=== PATIENT | male | born 1940 | race Two or more races ===

== ENCOUNTER 2021-04-26 15:37 | Emergency (ER) | payer OTHER ==
[2021-04-26 15:52] VITALS: BP 142/89; PULSE 96; TEMP 97.8; BMI 23.0
[2021-04-26 18:06] LABS: BASO % 0.6 % (0-2.0); EOS % 5.5 % (0-4.5); HEMATOCRIT 46.8 % (35.4-49); HEMOGLOBIN 16.1 GM/dL (11.7-16.9); LYMPH % 19.9 % (8-40); MCH 32.9 pg (25.7-33.7); MCHC 34.4 g/dl (32.0-35.9); MEAN CELL VOLUME 95.6 fl (80-96); MEAN PLT VOLUME 7.7 fl (7.5-11.1); PLATELET COUNT 238 10^3/uL (134-434); RBC 4.89 M/mm3 (4.00-5.60); RDW 13.2 % (11.9-15.9); WHITE BLOOD COUNT 6.4 K/mm3 (4.0-10.0)
[2021-04-26 18:32] LABS: ALBUMIN 4.3 g/dl (3.4-5.0); BLOOD UREA NITROGEN 11.6 mg/dL (7-18); CALCIUM 9.3 mg/dL (8.5-10.1)
[2021-04-26 18:35] LABS: CREATININE 1.4 mg/dL (0.55-1.3)
[2021-04-26 18:37] LABS: BILIRUBIN,TOTAL 0.5 mg/dL (0.2-1); TOT PROT 7.9 g/dl (6.4-8.2)
== END 2021-04-26 21:55 | disposition home or self-care (01) ==
LOC: JERFT 15:37
DX: I71.2 Thoracic aortic aneurysm, without rupture (principal); L04.2 Acute lymphadenitis of upper limb
CPT/HCPCS: 36415; 71250-TC; 80053; 85025; 99284-25

== ENCOUNTER 2021-07-30 04:26 | Day surgery (SDC) | payer OTHER ==
[2021-07-26 15:41] VITALS: BMI 21.6
[2021-07-30 13:37] VITALS: BP 162/86; PULSE 78; TEMP 97.6
== END 2021-07-30 14:03 | disposition home or self-care (01) ==
LOC: JRADIR 04:26
PROVIDERS: ATTEND Internal Medicine Hematology & Oncology
PROC: 07B63ZX Excision of Left Axillary Lymphatic, Percutaneous Approach, Diagnostic (ICD-10-PCS; principal; 2021-07-30)
DX: C85.14 Unspecified B-cell lymphoma, lymph nodes of axilla and upper limb (principal)
CPT/HCPCS: 38525; 76942-TC

== ENCOUNTER 2024-05-26 06:45 | Day surgery (SDC) | payer OTHER ==
[2024-05-25 08:32] VITALS: BMI 20.9
[~2024-05-26 06:45] MED LIST: ACETAMINOPHEN 325 MG TABLET (FP) PO PRN
[2024-05-26] MEDS ORDERED: LIDOCAINE HCL/PF 1% SDV 5ML VIAL ONE (07:25)
[2024-05-26] MEDS ORDERED: EPINEPHrine 1:1000 P/F - 1 MG/ML AMP ONE (07:25)
[2024-05-26] MEDS ORDERED: LIDOCAINE HCL/PF 2% SDV 5ML VIAL ONE (07:25)
[2024-05-26] MEDS ORDERED: BUPIVACAINE HCL/PF 0.75% 10 ML VIAL ONE (07:26)
[2024-05-26] MEDS ORDERED: OFLOXACIN 0.3% OPHTHALMIC SOLUTION 5 ML BOTTLE ONE (08:31)
[2024-05-26] MEDS ORDERED: KETOROLAC TROMETHAMINE 0.5% EYE DROP 1 DROP DROPS ONE (08:31)
[2024-05-26] MEDS ORDERED: TROPICAMIDE 1% OPHTH SOLN 15 ML BOTTLE ONE (08:31)
[2024-05-26] MEDS ORDERED: PHENYLEPHRINE 2.5% OPTHALMIC DROP 2ML BOTTLE ONE (08:31)
[2024-05-26] MEDS ORDERED: CYCLOPENTOLATE HCL 1% OPHTH SOLN 2 ML BOTTLE ONE (08:32)
[2024-05-26] MEDS: CYCLOPENTOLATE HCL 1% OPHTH SOLN 2 ML BOTTLE OP SCH (08:53)
[2024-05-26] MEDS: PHENYLEPHRINE 2.5% OPHTH SOLN 15 ML BOTTLE OP SCH (08:53)
[2024-05-26] MEDS: TROPICAMIDE 1% OPHTH SOLN 15 ML BOTTLE OP SCH (08:53)
[2024-05-26] MEDS: KETOROLAC TROMETHAMINE 0.5% EYE DROP 1 DROP DROPS OP SCH (08:53)
[2024-05-26] MEDS: OFLOXACIN 0.3% OPHTHALMIC SOLUTION 5 ML BOTTLE OP SCH (08:54)
[2024-05-26] MEDS ORDERED: MIDAZOLAM HCL 2 MG/2 ML SINGLE DOSE VIAL ONE (09:07)
[2024-05-26] MEDS ORDERED: PROPOFOL 20 ML ONE (09:59)
[2024-05-26] MEDS: LIDOCAINE HCL/PF 2% SDV 5ML VIAL INF ONE (10:13)
[2024-05-26] MEDS: BUPIVACAINE HCL/PF 0.75% 10 ML VIAL RB ONE (10:13)
[2024-05-26] MEDS: POVIDONE-IODINE 5% OPHTHALMIC PREP 30 ML SOLUTION OD ONE (10:17)
[2024-05-26] MEDS: LIDOCAINE HCL 1% PRESERVATIVE FREE - 30ML VIAL IO ONE (10:21)
[2024-05-26] MEDS: BSS (NA/CA/MG/K) BALANCED SALT SOLUTION OPHTH SOLN 15 ML BOTTLE OD ONE (10:21)
[2024-05-26] MEDS: TRYPAN BLUE 0.5 ML DISP.SYRIN IO ONE (10:22)
[2024-05-26] MEDS: CHONDROITIN SU A/HYALUR SOD 1 KIT IO ONE (10:23)
[2024-05-26] MEDS: EPINEPHrine 1:1000 P/F - 1 MG/ML AMP IO ONE (10:27)
[2024-05-26 12:22] VITALS: BP 149/85; PULSE 86; RESP 18; TEMP 97.8
== END 2024-05-26 11:50 | disposition home or self-care (01) ==
LOC: JASU-SURG 06:45
PROVIDERS: ATTEND Ophthalmology
PROC: 08RJ3JZ Replacement of Right Lens with Synthetic Substitute, Percutaneous Approach (ICD-10-PCS; principal; 2024-05-26 10:00)
DX: H25.21 Age-related cataract, morgagnian type, right eye (principal)
CPT/HCPCS: 66984; V2632